=== PATIENT | female | born 1990 | race Native Hawaiian/Other Pacific Islander ===

== ENCOUNTER 2018-03-04 06:38 | Inpatient (IN) | payer OTHER ==
[2018-03-04 08:01] VITALS: BMI 29.0
[2018-03-04] MEDS ORDERED: Lactated Ringer's 1,000 ML IV ONE ×2 (09:02→09:04)
[2018-03-04] MEDS ORDERED: Oxytocin 30 UNIT 30 UNITS/500 ML BAG IV ONE (09:04)
[2018-03-04] MEDS ORDERED: OXYTOCIN/0.9 % NS 20 UNIT/1,000 ML BAG IV SCH (09:15)
[2018-03-04 09:40] LABS: BASO % 0.5 % (0.0-2.0); EOS % 0.4 % (0.0-4.0); HEMOGLOBIN 11.7 g/dL (12.0-16.0); LYMPH # 1.3 K/uL (1.0-4.3); LYMPH % 20.9 % (20.0-40.0); MEAN CELL VOLUME 93.8 fl (81.0-99.0); MEAN CORPUSCULAR HEMOGLOBIN 30.7 pg (27.0-31.0); MEAN CORPUSCULAR HGB CONC 32.7 g/dL (33.0-37.0); MEAN PLATELET VOLUME 8.4 fl (7.2-11.7); MONO # 0.5 K/uL (0.0-0.8); MONO % 7.4 % (0.0-10.0); NEUT # 4.5 K/uL (1.8-7.0); NEUT % 70.8 % (50.0-75.0); NRBC % 0.3 % (0.0-0.0); RBC 3.8 Mil/uL (3.80-5.20); RED CELL DISTRIBUTION WIDTH 15.1 % (11.5-14.5); WHITE BLOOD COUNT 6.3 K/uL (4.8-10.8)
[2018-03-04] MEDS ORDERED: Lactated Ringer's 1,000 ML IV SCH ×2 (21:00→21:15)
[2018-03-04] MEDS ORDERED: Fentanyl/Bupivacaine HCl 250 ML EPI ONE (21:19)
[2018-03-05] MEDS ORDERED: Lidocaine 1% Inj (20ml) ONE (01:39)
--- NOTE | 2018-03-05 03:06 | OBDS ---
MATERNAL INFORMATION Estimated Blood Loss (ml): 250 Maternal Complications: None Provider Comments: Delivered a living baby girl appears term LGA cried spontaneouly 9/9, AF cl ear Placenta complete and intact Episiotomy done and repaired as above Smal vaginal laceraton left si de repaired as above Uterus contracted well No complicatons Rectal done no defects Tolerated procedur e well no complications LABOR SUMMARY EDC: 02/24/2018 00:00 No. Babies in Womb: 0 LABOR INFORMATION Reason for Induction: Postterm Onset of Labor: 03/03/2018 22:00 Cervical Ripening Agents: cerividil removed by Dr Tex Lawson B Beta Strep: Negative Steroids Given: None Reason Steroids Not Administered: Not Applicable VAGINAL DELIVERY Episiotomy: Median Laceration Extension: Second Degree Laceration Type: Vaginal Laceration Repair: Yes Laceration Repair Note: Episiotomy was done and repaired with 2-0 chromic continuosly for vagina and interrupted for deep No complications Sponge Count Correct: Yes Sharps Count Correct: Yes Count Comment: count correct and verified by tech and RN CSECTION DELIVERY Primary Indication: N/A Secondary Indication: N/A CSection Incision: N/A Uterine Closure: N/A BABY A INFORMATION Forceps: N/A Vacuum Extraction: N/A Shoulder Dystocia : No PRESENTATION/POSITION BABY A Presentation: Cephalic Cephalic Presentation: Vertex Vertex Position: Left Occipital Posterior Breech Presentation: N/A PLACENTA INFORMATION BABY A Placenta Method of Delivery: Spontaneous
[2018-03-05] MEDS ORDERED: Oxycodone/Acetaminophen 5/325 mg Tab PO PRN ×2 (03:07→07:03)
[2018-03-05] MEDS ORDERED: Benzocaine/Menthol SPRAY TOP PRN ×2 (03:07→07:03)
[2018-03-05] MEDS ORDERED: OXYTOCIN/0.9 % NS 20 UNIT/1,000 ML BAG IV SCH ×2 (03:10→07:03)
[2018-03-05 07:40] LABS: BASO # 0.1 K/uL (0.0-0.2); BASO % 0.6 % (0.0-2.0); EOS % 0.1 % (0.0-4.0); HEMOGLOBIN 10.5 g/dL (12.0-16.0); LYMPH # 1.3 K/uL (1.0-4.3); LYMPH % 10.5 % (20.0-40.0); MEAN CELL VOLUME 92.3 fl (81.0-99.0); MEAN CORPUSCULAR HEMOGLOBIN 30.4 pg (27.0-31.0); MEAN CORPUSCULAR HGB CONC 32.9 g/dL (33.0-37.0); MEAN PLATELET VOLUME 8.2 fl (7.2-11.7); MONO # 0.5 K/uL (0.0-0.8); MONO % 4.3 % (0.0-10.0); NEUT # 10.6 K/uL (1.8-7.0); NEUT % 84.5 % (50.0-75.0); NRBC % 0.1 % (0.0-0.0); RBC 3.44 Mil/uL (3.80-5.20); RED CELL DISTRIBUTION WIDTH 15.5 % (11.5-14.5); WHITE BLOOD COUNT 12.6 K/uL (4.8-10.8)
[2018-03-05] MEDS ORDERED: Hydrocortisone 2.5% (Rectal) CREAM TOP PRN (23:27)
[2018-03-06] MEDS: Lansinoh for Breast Feeding Mothers TP PRN ×2 (02:35→09:16)
--- NOTE | 2018-03-06 10:58 | OBPPN ---
Datetime: 03/06/2018 10:54 PP Pain Prov: Within normal limits PP Nausea Prov: Denies PP Flatus Prov: Yes PP BM Prov: No PP Breasts Prov: Normal PP Heart Prov: Normal PP Lungs Prov: Normal PP Abdomen/Uterus Prov: Normal PP Lochia Prov: Normal PP Vulva/Perineum Prov: Normal PP CVA Tenderness Prov: Normal PP Extremities Prov: Normal PP Progress Prov: Normal PP Impression Prov: Normal progression PP Plan Prov: Continue present management PP Progress Note Prov: stable ppd1 no complaints today IP PP Procedures: None
[2018-03-07] MEDS ORDERED: Influenza Vaccine (5 YR UP)/PF 60 MCG/0.5 ML SYR IM ONE (09:00)
--- NOTE | 2018-03-07 12:14 | OBPPN ---
Datetime: 03/07/2018 12:10 PP Pain Prov: Within normal limits PP Pain Prov comment: no SOB, chest or leg pains PP Nausea Prov: Denies PP Flatus Prov: Yes PP Nausea Prov comment: voiding well PP Breasts Prov: Normal PP Lungs Prov: Normal PP Abdomen/Uterus Prov: Abnormal PP Lochia Prov: Normal PP Vulva/Perineum Prov: Abnormal PP CVA Tenderness Prov: Normal PP Extremities Prov: Normal PP C/S Incision Prov: Not Applicable PP Progress Prov: Normal PP Comments Phys Exam Prov: breast not engorged nT breast feeding Abd soft ND fundus firm below the umb NT Perineum repaired ext no calf tenderness PP Impression Prov: Normal progression PP Plan Prov: Discharge PP Progress Note Prov: doing well will d/c home and follow office 4-6 wks IP PP Procedures: None Vital Signs Provider PP: Reviewed
--- NOTE | 2018-03-07 12:17 | OBDCSUM ---
Datetime: 03/07/2018 12:13 Discharged to, Provider: Home Follow up at, Provider: Dr Nice Disch Instr Activity: Bedrest; May be up to bathroom; May be up for meals; May Shower Disch Instr Diet: Regular Discharge Instructions, Provider: Routine instructions given Discharge Diagnosis, Provider: Postterm Discharge Time: 03/07/2018 12:13 Follow up in weeks, Provider: 4-6 wks Disch Referrals: None Contraception discussed, Prov: Yes Disch Activity Restrictions: No exercising; No lifting; No driving; Minimize walking; Minimize stair -climbing; No sexual activity; Nothing in vagina - [place], tampons, douche Discharge Comment, Provider: Continue PNC vit and iron Contraception after Delivery: Undecided Datetime: 03/07/2018 11:55 Discharged to, Provider: Home Follow up at, Provider: Dr Nice 4-6 weeks Disch Instr Activity: May Shower Disch Instr Diet: Regular Disch Activity Restrictions: No sexual activity; Nothing in vagina - [place], tampons, douche
[2018-03-07 20:46] VITALS: BP 118/71; PULSE 85; RESP 20; TEMP 98; O2SAT 99
== END 2018-03-07 16:30 | disposition home or self-care (01) | DRG 807 ==
LOC: H.EROB2 06:38 → H.ERHOLD 09:02 → H.L&D 09:26 → H.OB/GYN 03-05 08:01
PROVIDERS: ADMIT Specialist; ATTEND Specialist
PROC: 0W8NXZZ Division of Female Perineum, External Approach (ICD-10-PCS; principal; 2018-03-04)
PROC: 10E0XZZ Delivery of Products of Conception, External Approach (ICD-10-PCS; 2018-03-04)
PROC: 4A1HXCZ Monitoring of Products of Conception, Cardiac Rate, External Approach (ICD-10-PCS; 2018-03-04)
DX: O48.0 Post-term pregnancy (principal); Z37.0 Single live birth; Z3A.41 41 weeks gestation of pregnancy; O36.60X0 Maternal care for excessive fetal growth, unspecified trimester, not applicable or unspecified; O70.1 Second degree perineal laceration during delivery